=== PATIENT | male | born 1980 | race Caucasian/White ===

== ENCOUNTER 2023-06-12 16:21 | Emergency (ER) | payer OTHER, SELFPAY ==
[2023-06-12 16:30] VITALS: BP 119/68; PULSE 73; RESP 18; TEMP 36.4; O2SAT 98; BMI 29.5
--- NOTE | 2023-06-12 16:35 | ED.BACK1 ---
HPI - Back Pain/Injury General Chief Complaint: Back Pain/Injury Stated Complaint: BACK PAIN Time Seen by Provider: 06/12/23 16:34 Source: patient Mode of arrival: walk-in Limitations: no limitations History of Present Illness HPI Narrative: patient here for evaluation of right rib pain and low back pain. He states over the years he's had many falls and injuries. He's never seen a back surgeon or spine surgeon or had recent imaging . recently he says that his friends tried to adjust his back and then he went to a chiropractor , he started having increasing pain especially in the rib area. He does not have loss of bowel or bladder continence. He is not running a fever. He's not had any new injuries or falls recently. Apparently he is in a rehab program here locally and when he told him about his discomfort they advised him to go to the hospital. He does not have a primary care doctor. Related Data Home Medications Medication Instructions Recorded Confirmed buprenorphine 8 mg-naloxone 2 mg 2 film buccal DAILY 06/12/23 06/12/23 sublingual film (Suboxone) Allergies Allergy/AdvReac Type Severity Reaction Status Date / Time No Known Drug Allergies Allergy Verified 06/12/23 16:34 Exam Narrative Exam Narrative: patient moving about in the room. Vital signs noted. There is mild to moderate discomfort. Constitutional skin is warm and dry aches members are moist and pink. Chest shows no respirator distress. There is no substantial emphysema. He points to the upper to mid lateral rib area on his right side it's tender. No bruising is noted. Back and pelvis appears normal with no evidence of shingles skin lesions bruising or evidence of new acute injury. In a standing position when he tries to flex at twenty degrees he has discomfort. He has no radiculopathy type symptoms. Heel walking and toe walking are normal with no muscle weakness or deficit. Constitutional Vital Signs, click to edit/add: Last Vital Signs Temp 97.6 F 06/12/23 16:30 Pulse 73 06/12/23 16:30 Resp 18 06/12/23 16:30 BP 119/68 06/12/23 16:30 Pulse Ox 98 06/12/23 16:30 O2 Del Method Room Air 06/12/23 16:30 Course Vital Signs Vital signs: Vital Signs Temperature 97.6 F 06/12/23 16:30 Pulse Rate 73 06/12/23 16:30 Respiratory Rate 18 06/12/23 16:30 Blood Pressure 119/68 06/12/23 16:30 Pulse Oximetry 98 06/12/23 16:30 Oxygen Delivery Method Room Air 06/12/23 16:30 Temperature 97.6 F 06/12/23 16:30 Pulse Rate 73 06/12/23 16:30 Respiratory Rate 18 06/12/23 16:30 Blood Pressure 119/68 06/12/23 16:30 Pulse Oximetry 98 06/12/23 16:30 Oxygen Delivery Method Room Air 06/12/23 16:30 MDM - Back Pain/Injury MDM Narrative Medical decision making narrative: patient does not have any acute injury but is concerned after seeing a chiropractor inhabit his friend tried to do an adjustment. His x-rays are normal. He has long-standing history of chronic back issues. He is in a treatment program at this time. Anti-inflammatories to be advised. He has no indication of spinal involvement at this time. Discharge Plan Discharge Chief Complaint: Back Pain/Injury Clinical Impression: Strain of lumbar region, Contusion of rib Time of Disposition Decision: 17:20 Prescriptions / Home Meds: No Action buprenorphine-naloxone [Suboxone] 8-2 mg film 2 film buccal DAILY Rx Instructions: place 1 film on inside of (each) cheek Instructions: Rib Contusion (ED) Stand Alone Forms: Portal Instructions Referrals: Physician,Non-Staff, MD [Primary Care Provider] - 1 week
--- NOTE | 2023-06-12 16:39 | XR_ITS ---
The [address] [address] Patient Name: ORVILLE FRIAS MRN: [id number] date: 1980 Sex: M Assigned Patient Location: ER Current Patient Location: ED.MAIN Accession/Order Number: [id number] Exam Date: 06/12/2023 16:50 Report Date: 06/12/2023 17:12 At the request of: BLACK BAUTISTA Procedure: XR ribs RT 2V EXAMINATION: XR ribs RT 2V HISTORY: PAIN ; acute right rib pain COMPARISON: No relevant comparison available. FINDINGS: RIBS: Normal. No significant arthropathy or acute abnormality. LUNGS: No appreciable pneumothorax or pleural thickening. OTHER: Negative. XR/XR ribs RT 2V IMPRESSION: 1. No acute or suspicious abnormality of the right ribs. Electronically authenticated by: AISSATOU TYLER Date: 06/12/2023 17:12
--- NOTE | 2023-06-12 16:39 | XR_ITS ---
The [place] [id number] Patient Name: ORVILLE FRIAS MRN: [id number] date: 1980 Sex: M Assigned Patient Location: ER Current Patient Location: ER Accession/Order Number: [id number] Exam Date: 06/12/2023 16:50 Report Date: 06/12/2023 17:13 At the request of: BLACK BAUTISTA Procedure: XR lumbar spine 2-3V EXAMINATION: XR lumbar spine 2-3V HISTORY: PAin COMPARISON: No relevant comparison available. FINDINGS: BONES: No significant spondylosis, scoliosis, fracture, or visible bony lesion. DISC SPACES: Mild narrowing L5-S1. PARASPINOUS: Negative. No paraspinous abnormality is seen. OTHER: Negative. XR/XR lumbar spine 2-3V IMPRESSION: 1. No appreciable acute abnormality. 2. Minimal disc space narrowing L5-S1, likely degenerative. Electronically authenticated by: AISSATOU TYLER Date: 06/12/2023 17:13
== END 2023-06-12 17:32 | disposition home or self-care (01) ==
PROVIDERS: Emergency Provider Emergency Medicine Emergency Medical Services
DX: S39.012A Strain of muscle, fascia and tendon of lower back, initial encounter (principal); S20.212A Contusion of left front wall of thorax, initial encounter; X58.XXXA Exposure to other specified factors, initial encounter; Z91.81 History of falling; Z79.899 Other long term (current) drug therapy
CPT/HCPCS: 71100; 72100; 99283